=== PATIENT | female | born 1985 | race Caucasian/White ===

== ENCOUNTER 2020-02-21 16:16 | Emergency (ER) | payer OTHER, SELFPAY ==
[2020-02-21] VITALS (19 sets, daily range): BP systolic 100–140; BP diastolic 77–115; PULSE 63–117; RESP 10–23; TEMP 36.7–36.9; O2SAT 96–100
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
--- NOTE | 2020-02-21 16:28 | ECG_ITS ---
Measurements Intervals [place] Rate: 66 P: [place]: 0 QRS: 79 QRSD: 86 T: 53 QT: 406 QTc: 426 Interpretive Statements ECTOPIC ATRIAL OR ACCELERATED JUNCTIONAL RHYTHM BASELINE ARTIFACT- I, III, AVR, AVL, AVF, V1-V6 ABNORMAL ECG Electronically Signed On 02-21-2020 17:16:41 CDT by Leon Franz D.O.
[2020-02-21 16:46] LABS: Basophils Percent Auto 0.3 % (0.2-1.2); Eosinophils Absolute Auto 0.1 K/mm3 (0-0.3); Eosinophils Percent Auto 0.8 % (0-4.4); Hematocrit 41.1 % (37.0-47.0); Immature Granulocyte Absolute 0.02 K/mm3 (0.00-0.031); Immature Granulocyte Percent A 0.3 % (0-0.5); Lymphocytes Percent Auto 29.4 % (18.3-44.2); Mean Corpuscular HGB Conc 34.1 g/dl (32-36); Mean Corpuscular Hemoglobin 33.2 pg (26-34); Mean Corpuscular Volume 97.4 fl (80-100); Mean Platelet Volume 9.9 fl (7.4-10.4); Monocytes Absolute Auto 0.5 K/mm3 (0.1-0.6); Monocytes Percent Auto 6.3 % (2.6-8.5); Neutrophils Absolute Auto 4.5 K/mm3 (1.3-6.7); Neutrophils Percent Auto 62.9 % (45.5-73.1); Platelet Count Result 249 k/mm3 (150-375); Red Blood Count 4.22 M/mm3 (4.2-5.4); Red Cell Distribution Width 12.1 % (11.5-14.5); White Blood Count 7.1 K/mm3 (4.5-10.0)
[2020-02-21] MEDS: ONDANSETRON INJ 4 MG/2 ML VIAL IV PUSH (16:49)
[2020-02-21] MEDS: SODIUM CHLORIDE 0.9% IV 1,000 ML 999 ML IV CONT (16:49)
[2020-02-21] MEDS: MECLIZINE HCL 25 MG TABLET PO (16:49)
[2020-02-21 16:57] LABS: Anion Gap 8 mmol/L (8-16); Blood Urea Nitrogen 5 mg/dL (7-17); Calcium 8.7 mg/dL (8.4-10.2); Carbon Dioxide 27 mmol/L (22-30); Chloride 103 mmol/L (98-107); Estimated CRCL calculation 85 ml/min; Estimated Glomerular Filt Rate > 60; Glucose 111 mg/dL (65-105); Potassium 3.3 mmol/L (3.4-5.0); Sodium 138 mmol/L (137-145)
== END 2020-02-21 18:48 | disposition home or self-care (01) ==
PROVIDERS: Emergency Provider Emergency Medicine
DX: R42 Dizziness and giddiness (principal); F07.81 Postconcussional syndrome; E86.0 Dehydration; H61.22 Impacted cerumen, left ear; F17.210 Nicotine dependence, cigarettes, uncomplicated
CPT/HCPCS: 36415; 80048; 81025; 85025; 93005; 96361; 96374; 99284; A9270; J2405; J7030

== ENCOUNTER 2020-09-16 18:14 | Emergency (ER) | payer OTHER, SELFPAY ==
--- NOTE | ~2020-09-16 | XR_ITS ---
XR knee RT 3V DATE: 09/16/2020 18:41 INDICATION: Twisted knee yesterday. Medial pain and bruising TECHNIQUE: 3 views including crosstable lateral COMPARISON: None FINDINGS: No fracture or dislocation or joint effusion. No periosteal reaction or bone destruction. J oint spaces are well preserved. No radiopaque intra-articular loose body or chondrocalcinosis. IMPRESSION: Negative Reviewed, dictated and finalized at location A. IMPRESSION: Negative
[2020-09-16 18:16] VITALS: BP 91/63; PULSE 84; RESP 18; TEMP 36.4; O2SAT 98
--- NOTE | 2020-09-16 19:11 | ED.LOWEXIN ---
HPI - Extremity Injury (Lower) General Chief Complaint: Extremity Injury, Lower Stated Complaint: r knee pain Time Seen by Provider: 09/16/20 18:24 Source: patient Mode of arrival: ambulatory Limitations: no limitations History of Present Illness HPI Narrative: Patient is a 35-year-old female who presents complaining of right knee pain. Patient reports twisting and feeling a pop while going up steps and slipping yesterday. She denies fall. She denies other injuries. She reports pain ambulation with right knee. Edema and ecchymosis noted. She denies taking itsp-llg-recxowp pain medications prior to arrival. Related Data Allergies Allergy/AdvReac Type Severity Reaction Status Date / Time amoxicillin AdvReac Severe NAUSEA AND Verified 09/16/20 18:18 VOMITING Penicillins AdvReac Mild vomitting Verified 09/16/20 18:18 Review of Systems Review of Systems: Narrative: CONSTITUTIONAL: Denies fever, chills, or sweats. EYES: Denies visual changes, redness, or discharge. ENT: Denies rhinorrhea, congestion, sore throat, or otalgia. CARDIOVASCULAR: Denies chest pain, palpitations, or edema. RESPIRATORY: Denies cough or dyspnea. GASTROINTESTINAL: Denies abdominal pain, nausea, vomiting, or diarrhea. GENITOURINARY: Denies dysuria or hematuria. SKIN: Denies rash or itching. MUSCULOSKELETAL: Right knee pain. NEUROLOGIC: Denies headache, numbness, dizziness, or weakness. PSYCHIATRIC: Denies anxiety or depression. 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 LEEP procedure 2008, D&C Seasonal allergies Sexually transmitted disease Chlamydia, HPV Surgical History Surgical History H/O tubal ligation History of appendectomy History of cholecystectomy History of orthopedic surgery ORIF left femur Family History Family History Mother Cerebrovascular accident Father Hypertension Social History Social History Smoking packs per day: 1 Smoking cigarettes per day: 20.0 Smoking status: Current every day smoker Gender identity (if verbalized by the patient): Female Comments At the time of signature, I have reviewed and agree with nursing past medical, surgical, social, and family history unless otherwise noted. Please see nursing chart for further information. There is no relevant family history pertinent to the presenting complaint. Exam Narrative: Exam Narrative: GENERAL: Well-appearing, well-nourished, and in no acute distress. HEAD: Normocephalic, atraumatic. EYES: EOMI. No redness or drainage. ENT: Mucous membranes pink and moist. CHEST: No respiratory distress. HEART: Regular rate and rhythm. GI: Soft, nontender without rebound, or guarding. EXTREMITIES: Right knee, edema and ecchymosis to lateral aspect of knee. SKIN: Warm, dry, no rash. NEURO: No focal deficits. Alert and oriented x3. Gait steady. PSYCH: Normal affect. No signs of depression or anxiety. Course Vital Signs Vital signs: Vital Signs Temperature 36.4 C 09/16/20 18:16 Pulse Rate 84 09/16/20 18:16 Respiratory Rate 18 09/16/20 18:16 Blood Pressure 91/63 L 09/16/20 18:16 Pulse Oximetry 98 09/16/20 18:16 Temperature 36.4 C 09/16/20 18:16 Pulse Rate 84 09/16/20 18:16 Respiratory Rate 18 09/16/20 18:16 Blood Pressure 91/63 L 09/16/20 18:16 Pulse Oximetry 98 09/16/20 18:16 Reviewed MDM - Extremity Injury (Lower) MDM Narrative Medical decision making narrative: Patient's x-ray shows no acute osseous injury or deformity. Jagdeep wrap applied. Patient instructed on ice, elevation as well as using crutches for comfort. Patient to follow-up with orthopedics in 3 to 5 days if symptoms persist patient agrees with plan of
[2020-09-16 19:54] VITALS: BP 101/81; PULSE 71; RESP 18; O2SAT 99
== END 2020-09-16 19:56 | disposition home or self-care (01) ==
PROVIDERS: Emergency Provider Nurse Practitioner
DX: M25.561 Pain in right knee (principal); F17.210 Nicotine dependence, cigarettes, uncomplicated; X50.9XXA Other and unspecified overexertion or strenuous movements or postures, initial encounter
CPT/HCPCS: 73562; 99283

== ENCOUNTER 2021-01-16 12:18 | Emergency (ER) | payer OTHER, SELFPAY ==
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
[2021-01-16 12:20] VITALS: BP 121/91; PULSE 132; RESP 18; TEMP 36.9; O2SAT 95
[2021-01-16] MEDS: ACETAMINOPHEN 500 MG TABLET 1000 MG PO (13:23)
[2021-01-16 13:53] VITALS: TEMP 36.9
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
[2021-01-16] MEDS: TETANUS,DIPHTHERIA,AC PERTUSSIS ADULT (0.5 ML) BOOSTRIX IM (14:20)
[2021-01-16 14:51] VITALS: BP 110/81; PULSE 70; RESP 16; O2SAT 98
== END 2021-01-16 15:00 | disposition home or self-care (01) ==
PROVIDERS: Emergency Provider Nurse Practitioner
DX: S02.2XXA Fracture of nasal bones, initial encounter for closed fracture (principal); S01.21XA Laceration without foreign body of nose, initial encounter; F17.210 Nicotine dependence, cigarettes, uncomplicated; Z23 Encounter for immunization; Y04.2XXA Assault by strike against or bumped into by another person, initial encounter
CPT/HCPCS: 12011; 70486; 90471; 90715; 99284; A9270

== ENCOUNTER 2022-02-05 13:58 | Emergency (ER) | payer OTHER, SELFPAY ==
[2022-02-05 14:08] VITALS: BP 104/72; PULSE 80; RESP 14; TEMP 37.1; O2SAT 98
--- NOTE | 2022-02-05 16:46 | PC.NURSE ---
called back at 164 to check vitals and no response, called angella twice
--- NOTE | 2022-02-05 16:48 | PC.NURSE ---
pt. called x3 for repeat vs no answer
== END 2022-02-05 17:10 | disposition left against medical advice (07) ==
DX: R20.0 Anesthesia of skin (principal)
CPT/HCPCS: 99199

== ENCOUNTER 2022-03-23 14:06 | Emergency (ER) | payer OTHER, SELFPAY ==
[2022-03-23 14:24] VITALS: BP 122/78; PULSE 94; RESP 20; TEMP 36.3; O2SAT 97
--- NOTE | 2022-03-23 15:08 | ED.GENADULT ---
HPI - General Adult General Chief complaint: Unspecified Stated complaint: Nose Injury Time Seen by Provider: 03/23/22 14:40 Source: patient, RN notes reviewed and old records reviewed Mode of arrival: ambulatory Limitations: no limitations History of Present Illness HPI narrative: 36 year old female presents to express care with complaints of acute nasal discomfort and feelings of congestion today. Patient had sinus surgery yesterday and patient so out of it when she received discharge instructions and no one else paind any attention to it and she doesn't know what to do. Patient has folder from hospital and has specific instructions in it for post op care. Patient states that she tried to get ahold of her ENT surgeon and has not been able to reach her. Patient states that she has nasal splints in place and she is wearing a 2X2 drip pad under her nose with only small amount of bloody drainage.Patient has antibiotic to take and pain medication for her post op pain. MD complaint: sinus congestion feels bad after having sinus surgery yesterday Onset (ago): day(s) (1) Treatments prior to arrival: other (prescribed pain medication) Related Data Home Medications Medication Instructions Recorded Confirmed cefdinir 300 mg capsule mg 03/23/22 escitalopram oxalate 10 mg tablet mg 03/23/22 fluticasone propionate 50 intranasal 03/23/22 mcg/actuation nasal spray,suspension hydrocodone 5 mg-acetaminophen 325 tablet 03/23/22 mg tablet hydroxyzine HCl 25 mg tablet mg 03/23/22 trazodone 50 mg tablet mg 03/23/22 Allergies Allergy/AdvReac Type Severity Reaction Status Date / Time amoxicillin AdvReac Severe NAUSEA AND Verified 03/23/22 14:14 VOMITING Penicillins AdvReac Mild vomitting Verified 03/23/22 14:14 Review of Systems Review of Systems: CONSTITUTIONAL: Denies fever, chills, or sweats. EYES: Denies visual changes, redness, or discharge. ENT: positive rhinorrhea, congestion, no sore throat, or otalgia, post op pain CARDIOVASCULAR: Denies chest pain, palpitations, or edema. RESPIRATORY: Denies cough or dyspnea. GASTROINTESTINAL: Denies abdominal pain, nausea, vomiting, or diarrhea. GENITOURINARY: Denies dysuria or hematuria. SKIN: Denies rash or itching. MUSCULOSKELETAL: Denies back pain, joint pain, or myalgia. NEUROLOGIC: Denies headache, numbness, or weakness. PSYCHIATRIC: Positive for anxiety or depression. 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 LEEP procedure 2007, D&C Seasonal allergies Sexually transmitted disease Chlamydia, HPV Surgical History Surgical History H/O tubal ligation History of appendectomy History of cholecystectomy History of orthopedic surgery ORIF left femur Family History Family History Mother Cerebrovascular accident Father Hypertension Social History Social History Smoking packs per day: 1 Smoking cigarettes per day: 20.0 Smoking status: Current every day smoker Gender identity (if verbalized by the patient): Female Sexual Orientation (if Verbalized by the Patient): Straight or Heterosexual Comments At time of signature, agree with nursing past medical, surgical, social and family history. There is no relevant family history pertinent to the presenting complaint Exam Narrative: GENERAL: Well-appearing, well-nourished, and in no acute distress. HEAD: Normocephalic, atraumatic. EYES: PERRLA and EOMI. ENT: Nares inflamed post operative with some bloody rhinorrhea no epistaxis. Mucous membranes moist.TM's normal with good light reflex, throat pink with no lesions or swelling some post nasal dischar
== END 2022-03-23 15:27 | disposition home or self-care (01) ==
PROVIDERS: Emergency Provider Registered Nurse; PCP Nurse Practitioner
DX: R09.81 Nasal congestion (principal); F17.210 Nicotine dependence, cigarettes, uncomplicated; F41.9 Anxiety disorder, unspecified; F32.A Depression, unspecified
CPT/HCPCS: 99211; G0463

== ENCOUNTER 2022-08-06 17:19 | Emergency (ER) | payer OTHER, SELFPAY | END 2022-08-06 18:41 | disposition left against medical advice (07) | PROVIDERS: PCP Nurse Practitioner | DX: Z53.21 Procedure and treatment not carried out due to patient leaving prior to being seen by health care provider (principal) | CPT/HCPCS: 99199 ==

== ENCOUNTER 2023-10-26 14:39 | Emergency (ER) | payer OTHER, SELFPAY ==
[2023-10-26 14:53] VITALS: BP 98/73; PULSE 83; RESP 18; TEMP 36.4; O2SAT 100
[2023-10-26 15:23] LABS: Appearance Urine Clear (Clear); Bilirubin Urine Negative (Negative); Blood Urine Negative (Negative); Color Urine Yellow (Yellow); Glucose Urine UA Negative (Negative); Ketones Urine Negative (Negative); Leukocyte Esterase Ur Negative LEU/UL (Negative); Nitrate Urine Negative (Negative); Protein Urine Negative (Negative); Specific Grav Ur 1.013 (1.001-1.035); Urobilinogen Urine 0.2 mg/dL (<2.0); pH Urine 6.5 (5.0-9.0)
[2023-10-26 15:43] LABS: Add Urine Microscopic? NO
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
[2023-10-26 16:27] LABS: Trichomonas Vag PCR NOT DETECTED (NOT DETECTE)
[2023-10-26 16:52] LABS: Chlamydia trachomatis NOT DETECTED (NOT DETECTE); Neisseria gonorrhoeae PCR NOT DETECTED (NOT DETECTE)
== END 2023-10-26 17:26 | disposition home or self-care (01) ==
PROVIDERS: Emergency Provider Physician Assistant; PCP Nurse Practitioner
DX: R30.0 Dysuria (principal); Z11.3 Encounter for screening for infections with a predominantly sexual mode of transmission; F41.9 Anxiety disorder, unspecified; F31.9 Bipolar disorder, unspecified; Z90.49 Acquired absence of other specified parts of digestive tract; F17.210 Nicotine dependence, cigarettes, uncomplicated
CPT/HCPCS: 81003; 87491; 87591; 87661; 99284